=== PATIENT | female | born 1970 | race Caucasian/White ===

== ENCOUNTER 2024-07-14 16:11 | Observation (INO) ==
[2024-07-14 16:46] LABS: Basophils #(Absolute) Auto 0.2 (0.0-0.1); Basophils%(Percent) Auto 1.3 (0.1-0.85); Eosinophils#(Absolute)Auto 0.6 (0.0-0.2); Eosinophils%(Percent) Auto 4.5 % (0.4-2.8); Granulocytes % - Auto 50.8 % (47.8-71.3); Granulocytes#(Absolute)- Auto 6.5 (2.3-6.0); Hematocrit 41.8 % (35.9-46.7); Mean Corpuscular Volume 86.5 fl (81.0-93.7); Monocytes #(Absolute)- Auto 0.7 (1.1-3.1); Monocytes %(Percent)- Auto 5.3 % (3.6-9.8); Platelet Count 348 K/uL (152-353); White Blood Count 12.8 K/uL (4.3-9.3)
[2024-07-14] MEDS ORDERED: 0.9 % SODIUM CHLORIDE 1000 ML 1,000 ML IV ONE (16:49)
[2024-07-14] MEDS ORDERED: METHYLPREDNISOLONE SOD SUCC/PF 125 MG/2 ML VIAL ONE (16:49)
[2024-07-14] MEDS: 0.9 % SODIUM CHLORIDE 1000 ML 1,000 ML IV STA (16:52)
[2024-07-14] MEDS: METHYLPREDNISOLONE SOD SUCC/PF 125 MG/2 ML VIAL IVP ONE (16:52)
--- NOTE | 2024-07-14 16:55 | Emergency Department Note ---
HPI - Weakness General Chief complaint: Headache Stated complaint: near syncope Time Seen by Provider: 07/14/24 16:16 Source: patient Mode of arrival: ambulance Limitations: no limitations History of Present Illness HPI Narrative: 54-year-old female presents to ER via EMS with complaint of headache, weakness, and chest pain x 1 day. Patient reports that she has recently had a growth removed from her left chest wall, reports that she has not been feeling well since yesterday, that she has been weak and her chest feels tight. MD Complaint: Reports generalized weakness and lack of energy Onset (ago): day(s) (1) Duration: Reports constant Location: Reports generalized and other (Chest) Migration: Reports none Severity: moderate Quality: Reports aching and other (Tightness) Relieving factors: Reports rest Exacerbating factors: Reports movement and exertion Context: Reports history of similar Associated symptoms: Reports chest pain, fever/chills, myalgias and shortness of breath Related Data Home Medications Medication Instructions Recorded Confirmed albuterol sulfate 90 mcg/actuation 2 inh inhalation Q4H PRN shortness 07/14/24 07/14/24 aerosol inhaler (Ventolin HFA) of breath or wheezing aspirin 81 mg tablet,delayed 81 mg PO DAILY 07/14/24 07/14/24 release atorvastatin 40 mg tablet 40 mg PO DAILY 07/14/24 07/14/24 clonazepam 0.5 mg tablet 0.5 mg PO DAILY 07/14/24 07/14/24 duloxetine 60 mg capsule,delayed 120 mg PO DAILY 07/14/24 07/14/24 release fenofibrate nanocrystallized 145 145 mg PO DAILY 07/14/24 07/14/24 mg tablet gabapentin 800 mg tablet 800 mg PO BID 07/14/24 07/14/24 hydroxyzine HCl 50 mg tablet 50 mg PO DAILY 07/14/24 07/14/24 levetiracetam 750 mg tablet 750 mg PO Q12H 07/14/24 07/14/24 meclizine 25 mg tablet 25 mg PO TID PRN dizziness 07/14/24 07/14/24 metformin 500 mg tablet 500 mg PO BID 07/14/24 07/14/24 naloxone 4 mg/actuation nasal spray 4 mg intranasal Q3M PRN opioid 07/14/24 07/14/24 overdose nitroglycerin 0.4 mg sublingual 0.4 mg sublingual Q5M PRN chest 07/14/24 07/14/24 tablet pain pantoprazole 40 mg tablet,delayed 40 mg PO DAILY 07/14/24 07/14/24 release prazosin 2 mg capsule 2 mg PO DAILY 07/14/24 07/14/24 promethazine 25 mg tablet 25 mg PO Q12H 07/14/24 07/14/24 propranolol 80 mg capsule,24 80 mg PO DAILY 07/14/24 07/14/24 hr,extended release trazodone 100 mg tablet 100 mg PO DAILY 07/14/24 07/14/24 Previous Rx's Medication Instructions Recorded ibuprofen 800 mg tablet 800 mg PO Q8H PRN pain #20 tabs 06/06/24 Allergies Allergy/AdvReac Type Severity Reaction Status Date / Time metoclopramide (From Reglan) Allergy Unknown Verified 07/14/24 16:20 ondansetron (From Zofran) Allergy Unknown Verified 07/14/24 16:20 simvastatin (From Zocor) Allergy Unknown Verified 07/14/24 16:20 sumatriptan (From Imitrex) Allergy Unknown Verified 07/14/24 16:20 steroids Allergy Unknown Uncoded 07/14/24 16:20 Review of Systems Status of ROS 10 or more systems reviewed and unremark able except as noted in history and below Constitutional Reports: fever, chills, fatigue and malaise; Denies: night sweats, change in sleep pattern or other Eyes Denies: change in vision, blurry vision, blind spots, light sensitivity, eye discomfort, eye discharge, dry eyes, increased production of tears, floaters, seeing flashes, decreased night vision or other Ears, nose, mouth, and throat Reports: nasal discharge and nasal congestion; Denies: throat pain, neck pain, throat swelling, difficulty swallowing, hoarseness, mouth pain, swelling of lips/tongue, dry mouth, bad breath, ear pain, ear discharge, change in hearing, tinnitus, vertigo, nose bleeds, post nasal drip or other Cardiovascular Reports: chest pain, shortness of breath with exertion and shortness of breath when lying down; Denies: palpitations, edema, swelling of feet/ankles, lightheadedness, leg pain with exertion, bluish discoloration of hands/feet or other Respiratory Reports: shortness of breath, cough, wheezing and chest congestion; Denies: stridor, pain on inspiration, change in phlegm color, coughing up blood or other Gastrointestinal Reports: difficulty swallowing; Denies: abdominal pain, nausea, vomiting, coffee grounds in vomit, heartburn, diarrhea, constipation, bloating, belching, excessive passing of gas, feeling full early, change in bowel habits, painful bowel movements, rectal pain, rectal swelling, rectal itching, change in stool character, blood in stool, mucus in stool, white/light colored stool, fatty stool or other Genitourinary Denies: painful urination, urinary frequency, urinary urgency, urinary incontinence, blood in urine, difficulty voiding, decreased urine ouput, pelvic pain, painful menstruation, vaginal bleeding, vaginal discharge, irregular period, change in menstrual flow, absence of menstruation, genital lesion, genital itching, vaginal dryness, vaginal odor, pain during intercourse, difficulty conceiving, change in libido or other Musculoskeletal Denies: back pain, neck pain, extremity pain, extremity swelling, joint pain, limited range of motion, joint swelling, muscle cramps, muscle weakness, loss of height or other Integumentary/Breast Denies: rash, itching, redness, skin pain, skin tenderness, skin swelling, sores, new lesion, changing lesion, non-healing lesion, changes in skin color, jaundice, stretch kerr, acne, nail changes, change in hair, breast pain, breast swelling, nipple discharge, breast mass, breast skin changes, change in breast shape or other Neurological Denies: headache, numbness in extremities, weakness in extremities, lack of coordination, dizziness, vertigo, confusion, behavioral changes, slurred speech, difficulty communicating thoughts, seizure-like activity, involuntary movements or other Psychiatric Reports: anxiety; Denies: mood swings, panic attacks, change in sleep pattern, hopelessness, loss of interest, irritability, paranoia, memory loss, difficulty concentrating, visual hallucinations, auditory hallucinations, tactile hallucinations, suicidal ideation, homicidal ideation or other Endocrine Reports: fatigue; Denies: excessive urination, excessive thirst, cold intolerance, excessive sweating, flushing, heat intolerance, deepening of the voice, change in body appearance, change in libido or other Hematologic/Lymphatic Denies: easy bruising, easy bleeding, enlarged lymph nodes or other Allergic/Immunologic Reports: wheezing; Denies: hives, throat swelling, tongue swelling, facial swelling, itchy eyes, seasonal allergies, food intolerance or other [facility] Medical History History of TIAs Seizures Asthma COPD (chronic obstructive pulmonary disease) Migraines CVA (cerebral vascular accident) Diabetes mellitus Hypertension Surgical History History of lumbosacral spine surgery H/O: hysterectomy Hx of cholecystectomy Social History Smoking status: current every day smoker What tobacco products do you use: cigarettes Packs per day: 2 Within the past year, how often did you have a drink containing alcohol: never Score interpretation: A score less than 3 is consistent with normal alcohol consumption. Non-prescribed substance use: cannabis (any form) Feel stressed/tense/nervous/anxious/difficulty sleeping: not at all Life stressor details: n/a Exam Constitutional: normal general appearance, distress noted (moderate), abnormal body habitus (overweight), no limitations and alert Vital Signs - 24 hr 07/14/24 16:14 07/14/24 16:22 07/14/24 16:24 Temperature 99.6 F Pulse Rate 87 78 83 Respiratory Rate 20 Blood Pressure 102/71 99/60 108/63 Pulse Oximetry 98 Oxygen Delivery Ms thod Room Air 07/14/24 16:26 07/14/24 17:10 07/14/24 19:30 Temperature Pulse Rate 101 H 63 Respiratory Rate 20 Blood Pressure 107/71 108/82 Pulse Oximetry 100 100 Oxygen Delivery Ms thod Room Air 07/14/24 20:30 07/14/24 21:30 07/14/24 22:00 Temperature Pulse Rate 74 73 72 Respiratory Rate 20 20 20 Blood Pressure 101/63 108/82 105/61 Pulse Oximetry 98 98 97 Oxygen Delivery Me thod Room Air Room Air Room Air 07/14/24 22:30 Temperature Pulse Rate 65 Respiratory Rate 20 Blood Pressure 100/59 Pulse Oximetry [facility] HENMT: normocephalic, head/scalp atraumatic, hearing grossly normal bilaterally, external ears normal, external nose normal, oral mucous membranes normal, oropharynx normal and dentition normal Eyes: PERRL, EOMs intact bilaterally, conjunctivae normal, no scleral icterus, no papilledema, normal visual luna by confrontation, alignment normal, periorbital findings normal and no nystagmus Neck/C-Spine: visual inspection normal, trachea midline, cervical spine nontender, cervical full ROM noted and supple Lymph: no lymphadenopathy noted and no lymphedema noted Chest: inspection of chest normal Noted an incision to the left chest wall where patient reports high growth was removed. Respiratory: breath sounds equal bilaterally, normal respiratory effort, clear to auscultation bilaterally, wheezing noted (expiratory wheezes), no retractions and no use of accessory muscles Cardiovascular: normal heart rate noted, regular rhythm noted, no gallop, no JVD and peripheral pulses 2+ throughout Gastrointestinal: abdomen normal to inspection, abdomen soft to palpation, nontender to palpation, nondistended, normoactive bowel sounds, no hepatosplenomegaly, no masses, no pulsatile mass and no ascites Genitourinary: no CVA tenderness and bladder normal to palpation Back/Pelvis: spine normal to inspection, no thoracic spine tenderness, no lumbar spine tenderness, thoracic spine ROM normal, lumbar spine ROM normal and no paraspinal muscle tenderness noted Extremities: normal to inspection, normal to palpation, no tenderness, full ROM, no joint enlargement and no deformity Neurology: 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, no movement abnormality noted, no focal motor deficit noted, no sensory deficits noted, gait normal, speech normal, coordination normal, no pronator drift noted, no fasciculations noted and GCS normal Psychiatry: Mental Status Exam documented within this Exam's Psych section mental status grossly normal, oriented x3, thought process normal, cooperative, affect normal, psychomotor activity normal and memory normal Feel stressed/tense/nervous/anxious/difficulty sleeping: not at all Life stressor details: n/a Skin: skin color normal, no rash, no lesions, no ecchymosis noted, no wounds, no lacerations, skin turgor normal, no jaundice, no petechiae, no mottling, nails normal and no alopecia Course Course Hospital Course: 54-year-old female presented ER with complaint of generalized weakness, chest pain, shortness of breath, has been evaluated by physical exam, CBC, CMP, urinalysis, magnesium, serial troponins, EKG, and plain film chest x-ray results as noted in charting. Patient's troponin initial troponin has been found to be elevated with serial troponins revealing no noted increase. Patient's chest x- ray reveals possible right upper lobe infiltrate or patchy opacity, patient's CBC reveals a 13,000 white count, and patient reports that she is having excruciating headache. Patient is noted to have expiratory wheezing and has received 2 DuoNebs and a Pulmicort breathing treatment for it. Patient has also been found to be hypoalbuminemic and hyponatremic. Patient will be admitted to [facility] floor for chest pain rule out continuing troponins and repeat EKG in the morning. Patient will receive electrolyte replacement as well as albumin infusion. Final read on patient's chest x-ray will be made by radiology; however, she will receive antibiotic therapy as well. Patient has agreed with treatment plan at this time and will be moved to soon as bed is available nursing staff will carry her to the floor. Vital Signs Vital signs: Vital Signs Temperature 99.6 F 07/14/24 16:14 Pulse Rate 87 07/14/24 16:14 Respiratory Rate 20 07/14/24 16:14 Blood Pressure 102/71 07/14/24 16:14 Pulse Oximetry 98 07/14/24 16:14 Oxygen Delivery Method Room Air 07/14/24 16:14 Temperature 99.6 F 07/14/24 16:14 Pulse Rate 65 07/14/24 22:30 Respiratory Rate 20 07/14/24 22:30 Blood Pressure 100/59 07/14/24 22:30 Pulse Oximetry 96 07/14/24 22:30 Oxygen Delivery Method Room Air 07/14/24 22:30 MDM - Weakness MDM Narrative Medical decision making narrative: Medical Decision Making this patient involved physical exam, CBC, CMP, urinalysis, magnesium, EKG, plain film chest x-ray, and troponin. Differential Diagnosis Differential diagnosis: Likely hypoglycemia, hypothyroidism, rhabdomyolysis, deh ydration and other (Chest pain, influenza, COVID, shortness of breath, generalized weakness) Lab Data Attestation: I reviewed the patient's lab results. Labs: Lab Results 07/14/24 07/14/24 07/14/24 Range/Units 16:25 16:30 18:30 WBC 12.8 H (4.3-9.3) K/uL RBC 4.8 (4.00-5.50) M/uL Hgb 13.3 (12.5-15.8) gm/dL Hct 41.8 (35.9-46.7) % MCV 86.5 (81.0-93.7) fl MCH 27.5 L (27.6-32.2) pg MCHC 31.8 L (33.1-35.3) g/dl RDW 14.4 H (11.4-14.2) % Plt Count 348 (152-353) K/uL MPV 8.9 (6.9-10.8) fl Gran % 50.8 (47.8-71.3) % Lymph % (Auto) 38.1 (20.0-43.0) % [place] % (Auto) 5.3 (3.6-9.8) % Eos % (Auto) 4.5 H (0.4-2.8) % Baso % (Auto) 1.3 H (0.1-0.85) Lymph # (Auto) 4.9 H (1.1-3.1) [place] # (Auto) 0.7 L (1.1-3.1) Eos # (Auto) 0.6 H (0.0-0.2) Baso # (Auto) 0.2 H (0.0-0.1) Absolute Gran (auto) 6.5 H (2.3-6.0) Sodium 134 L (136-145) mmol/L Potassium 4.0 (3.6-5.2) mmol/L Chloride 103.0 (98-107) mmol/L Carbon Dioxide 22 (21-32) mmol/L Anion Gap 9.0 (4-14) mEq/L BUN 20 H (7-18) mg/dL Creatinine 1.2 (0.6-1.3) mg/dL Estimated GFR 54.5 (>59.9) Glucose 119 H (70-110) mg/dL Calcium 8.3 L (8.5-10.1) mg/dL Magnesium 1.2 L (1.8-2.4) mg/dL Total Bilirubin 0.13 (0.0-1.0) mg/dL AST 13 L (15-37) U/L ALT 11 L (30-65) U/L Alkaline Phosphatase 75 (50-136) U/L Troponin I High Sens 114.10 H* (4.0-60.4) ng/L Total Protein 7.3 (6.4-8.2) g/dL Albumin 3.1 L (3.4-5.0) g/dL Urine Color Yellow (STRAW/YELL.) Urine Appearance Clear (CLEAR) Ur Specific [place] 1.030 (1.001-1.035) Urine Protein Negative (NEGATIVE) Urine Glucose (UA) Normal (NORMAL) Urine Ketones Small (NEGATIVE) Urine Occult Blood Negative (NEG - TRACE) Urine Nitrite Negative (NEGATIVE) Urine Bilirubin Negative (NEGATIVE) Urine Urobilinogen Normal (NORMAL) Ur Leukocyte Esterase Negative (NEGATIVE) Fluid pH 6.0 (5 - 9) COVID-19 (CHEMO) Not detected (Not Detectd) Influenza Type A Ag Negative (Negative) Influenza Type B Ag Negative (Negative) 07/14/24 Range/Units 19:00 WBC (4.3-9.3) K/uL RBC (4.00-5.50) M/uL Hgb (12.5-15.8) gm/dL Hct (35.9-46.7) % MCV (81.0-93.7) fl MCH (27.6-32.2) pg MCHC (33.1-35.3) g/dl RDW (11.4-14.2) % Plt Count (152-353) K/uL MPV (6.9-10.8) fl Gran % (47.8-71.3) % Lymph % (Auto) (20.0-43.0) % [place] % (Auto) (3.6-9.8) % Eos % (Auto) (0.4-2.8) % Baso % (Auto) (0.1-0.85) Lymph # (Auto) (1.1-3.1) [place] # (Auto) (1.1-3.1) Eos # (Auto) (0.0-0.2) Baso # (Auto) (0.0-0.1) Absolute Gran (auto) (2.3-6.0) Sodium (136-145) mmol/L Potassium (3.6-5.2) mmol/L Chloride (98-107) mmol/L Carbon Dioxide (21-32) mmol/L Anion Gap (4-14) mEq/L BUN (7-18) mg/dL Creatinine (0.6-1.3) mg/dL Estimated GFR (>59.9) Glucose (70-110) mg/dL Calcium (8.5-10.1) mg/dL Magnesium (1.8-2.4) mg/dL Total Bilirubin (0.0-1.0) mg/dL AST (15-37) U/L ALT (30-65) U/L Alkaline Phosphatase (50-136) U/L Troponin I High Sens 114.40 H* (4.0-60.4) ng/L Total Protein (6.4-8.2) g/dL Albumin (3.4-5.0) g/dL Urine Color (STRAW/YELL.) Urine Appearance (CLEAR) Ur Specific [place] (1.001-1.035) Urine Protein (NEGATIVE) Urine Glucose (UA) (NORMAL) Urine Ketones (NEGATIVE) Urine Occult Blood (NEG - TRACE) Urine Nitrite (NEGATIVE) Urine Bilirubin (NEGATIVE) Urine Urobilinogen (NORMAL) Ur Leukocyte Esterase (NEGATIVE) Fluid pH (5 - 9) COVID-19 (CHEMO) (Not Detectd) Influenza Type A Ag (Negative) Influenza Type B Ag (Negative) Imaging Data Imaging ordered: Chest x-ray Attestation: I personally reviewed and interpreted this imaging study as follows: My impression: Possible infiltrate or effusion in the right upper lobe ECG Data Attestation: I have reviewed the pertinent ECG results. Interpretation: Sinus rhythm rate 71 Normal P axis RR rate 44 MI 157 P axis 9 QRS 36 T 26 Discharge Plan Discharge Patient Disposition: Admitted As Observation Condition: Stable Chief Complaint: Headache Clinical Impression: Chest pain, Hyponatremia, Hypoalbuminemia, Leukocytosis, Elevated troponin Prescriptions: No Action ibuprofen 800 mg tablet 800 mg PO Q8H PRN (Reason: pain) Qty: 20 0RF pantoprazole 40 mg tablet,delayed release (DR/EC) 40 mg PO DAILY Patient Comments: TAKE 1 TABLET BY MOUTH ONCE DAILY nitroglycerin 0.4 mg tablet, sublingual 0.4 mg sublingual Q5M PRN (Reason: chest pain) Patient Comments: DISSOLVE ONE TABLET UNDER THE TONGUE EVERY 5 MINUTES NEEDED FOR CHEST PAIN. DO NOT EXCEED A TOTAL OF 3 DOSES IN 15 MINUTES trazodone 100 mg tablet 100 mg PO DAILY Patient Comments: TAKE 1 TABLET BY MOUTH AT BEDTIME Rx Instructions: at bedtime atorvastatin 40 mg tablet 40 mg PO DAILY Patient Comments: TAKE 1 TABLET BY MOUTH ONCE DAILY AT BEDTIME Rx Instructions: at bedtime aspirin 81 mg tablet,delayed release (DR/EC) 81 mg PO DAILY Patient Comments: TAKE 1 TABLET BY MOUTH ONCE DAILY hydroxyzine HCl 50 mg tablet 50 mg PO DAILY Patient Comments: TAKE 1 TO 2 TABLETS BY MOUTH THREE TIMES DAILY NEEDED Rx Instructions: take 1 -2 tablets by mouth tid as needed meclizine 25 mg tablet 25 mg PO TID PRN (Reason: dizziness) Patient Comments: TAKE 1 TABLET BY MOUTH THREE TIMES DAILY NEEDED Rx Instructions: take tid prn clonazepam 0.5 mg tablet 0.5 mg PO DAILY Patient Comments: TAKE 1 TABLET BY MOUTH ONCE DAILY propranolol 80 mg capsule,extended release 24 hr 80 mg PO DAILY Patient Comments: TAKE 1 CAPSULE BY MOUTH ONCE DAILY metformin 500 mg tablet 500 mg PO BID Patient Comments: TAKE 2 TABLETS BY MOUTH TWICE DAILY WITH A MEAL prazosin 2 mg capsule 2 mg PO DAILY Patient Comments: TAKE 1 CAPSULE BY MOUTH AT BEDTIME Rx Instructions: at bedtime gabapentin 800 mg tablet 800 mg PO BID Patient Comments: TAKE 1 TABLET BY MOUTH 2 TO 3 TIMES DAILY Rx Instructions: take 1 tablet 2-3 times daily fenofibrate nanocrystallized 145 mg tablet 145 mg PO DAILY Patient Comments: TAKE 1 TABLET BY MOUTH ONCE DAILY duloxetine 60 mg capsule,delayed release(DR/EC) 120 mg PO DAILY Patient Comments: TAKE 2 CAPSULES BY MOUTH ONCE DAILY levetiracetam 750 mg tablet 750 mg PO Q12H Patient Comments: TAKE 1 TABLET BY MOUTH EVERY 12 HOURS promethazine 25 mg tablet 25 mg PO Q12H Patient Comments: TAKE 1 TABLET BY MOUTH EVERY 12 HOURS naloxone 4 mg/actuation spray,non-aerosol 4 mg INTRANASAL Q3M PRN (Reason: opioid overdose) Patient Comments: ADMINISTER A SINGLE SPRAY IN ONE NOSTRIL UPON SIGNS OF OPIOID OVERDOSE. CALL 911. REPEAT AFTER 3 MINUTES IF NO RESPONSE. albuterol sulfate [Ventolin HFA] 90 mcg/actuation HFA aerosol inhaler 2 inh inhalation Q4H PRN (Reason: shortness of breath or wheezing) Print Language: Welsh Referrals: Nina Deshpande [Primary Care Provider] - Time of Disposition: 21:00
[2024-07-14] MEDS: IPRATROPIUM/ALBUTEROL SULFATE 3 ML AMPUL.NEB INH ONE (17:11)
[2024-07-14] MEDS: BUDESONIDE 0.5 MG/2 ML AMPUL.NEB INH ONE (17:11)
[2024-07-14] MEDS: MAGNESIUM SULFATE 1 GM/2 ML 2 GM in 0.9 % SODIUM CHLORIDE 100ML 100 ML IV ONE (17:28)
[2024-07-14 18:40] LABS: Urine Appearance CLEAR (CLEAR); Urine Color YELLOW (STRAW/YELL.)
[2024-07-14 18:41] LABS: Urine Blood NEGATIVE (NEG - TRACE); Urine Urobilinogen Normal (NORMAL)
[2024-07-14] MEDS: diphenhydrAMINE HCL 50 MG/ML VIAL INJ ONE (20:51)
[2024-07-14] MEDS: MORPHINE SULFATE 4 MG/ML CARTRIDGE IVP ONE (20:52)
[2024-07-14] MEDS ORDERED: MAGNESIUM SULFATE 1 GM/2 ML VIAL ONE (20:57)
[2024-07-14] MEDS ORDERED: 0.9 % SODIUM CHLORIDE 100ML 100 ML IV ONE (20:59)
[2024-07-15] MEDS ORDERED: MORPHINE SULFATE 4 MG/ML CARTRIDGE IV PRN (00:05)
[2024-07-15] MEDS ORDERED: ACETAMINOPHEN 500 MG TABLET PO PRN (00:05)
[2024-07-15] MEDS ORDERED: DOCUSATE SODIUM 100 MG CAPSULE PO PRN (00:05)
[2024-07-15] MEDS ORDERED: 0.9 % SODIUM CHLORIDE 250 ML IV ONE (00:32)
[2024-07-15] MEDS ORDERED: AZITHROMYCIN 500 MG VIAL ONE (00:32)
[2024-07-15] MEDS: AZITHROMYCIN 500 MG 500 MG in 0.9 % SODIUM CHLORIDE 250 ML IV ONE (00:33)
[2024-07-15] MEDS: 0.9 % SODIUM CHLORIDE 1000 ML 1,000 ML IV SCH (01:09)
[2024-07-15] MEDS: MAGNESIUM SULFATE 1 GM/2 ML 1 GM in 0.9 % SODIUM CHLORIDE 100ML 100 ML IV ONE (01:09)
[2024-07-15] MEDS: PROMETHAZINE HCL 25 MG in 0.9 % SODIUM CHLORIDE 50 ML IV PRN (01:10)
[2024-07-15] MEDS: MAGNESIUM SULFATE 1 GM/2 ML VIAL ONE (01:10)
[2024-07-15] MEDS: IPRATROPIUM/ALBUTEROL SULFATE 3 ML AMPUL.NEB INH SCH ×2 (01:58→11:52)
[2024-07-15] MEDS: 0.9 % SODIUM CHLORIDE 100ML 100 ML IV ONE (02:01)
[2024-07-15 05:27] LABS: Basophils #(Absolute) Auto 0.1 (0.0-0.1); Basophils%(Percent) Auto 0.6 (0.1-0.85); Granulocytes % - Auto 84.1 % (47.8-71.3); Granulocytes#(Absolute)- Auto 10.4 (2.3-6.0); Hematocrit 36.1 % (35.9-46.7); Mean Corpuscular Volume 85.6 fl (81.0-93.7); Monocytes #(Absolute)- Auto 0.3 (1.1-3.1); Platelet Count 299 K/uL (152-353); White Blood Count 12.4 K/uL (4.3-9.3)
[2024-07-15 05:43] LABS: Potassium 4.3 mmol/L (3.6-5.2)
[2024-07-15] MEDS: BUDESONIDE 0.5 MG/2 ML AMPUL.NEB INH SCH (08:37)
[2024-07-15 08:47] VITALS: RESP 19
[2024-07-15] MEDS: PANTOPRAZOLE SODIUM 40 MG TABLET.DR PO SCH (09:23)
[2024-07-15] MEDS: ENOXAPARIN SODIUM 40 MG/0.4 ML SYRINGE SUBQ SCH (09:23)
[2024-07-15] MEDS: hydrOXYzine HCL 25 MG TABLET PO SCH (10:56)
[2024-07-15] MEDS: levETIRAcetam 250 MG TABLET PO SCH (10:57)
[2024-07-15] MEDS: CEFTRIAXONE SODIUM 1 GM in 0.9 % SODIUM CHLORIDE MB+ 50 ML IV SCH (10:57)
[2024-07-15] MEDS: ASPIRIN 81 MG TABLET.DR PO SCH (10:57)
[2024-07-15] MEDS: DULOXETINE HCL 30 MG CAPSULE.DR PO SCH (10:57)
[2024-07-15] MEDS: METFORMIN HCL 500 MG TABLET PO SCH (10:57)
[2024-07-15] MEDS: clonazePAM 0.5 MG TABLET PO SCH (10:57)
[2024-07-15] MEDS: METHYLPREDNISOLONE SOD SUCC/PF 40 MG/ML VIAL INJ SCH (11:00)
[2024-07-15] MEDS: PROPRANOLOL 80 MG PO SCH (11:16)
[2024-07-15] MEDS: TRAZODONE HCL 50 MG TABLET PO SCH (11:17)
[2024-07-15] MEDS: ATORVASTATIN CALCIUM 40 MG TABLET PO SCH (11:17)
[2024-07-15] MEDS: PRAZOSIN HCL 1 MG CAPSULE PO SCH (11:17)
[2024-07-15] MEDS: HYDROCODONE/ACETAMINOPHEN 5/325 MG TABLET PO PRN (11:56)
--- NOTE | 2024-07-15 12:48 | History & Physical Report ---
H&P: HPI History of Present Illness Chief complaint: chest pain, elevated troponin, leukocytosis, hypon Narrative: Ms. Stinson admitted on 07/15/24 from ED with increased CP over the last several days. She also complains of fatigue and dizziness mostly on ambulation. She states L side chest pain feels like a pressure. She did have procedure done 1 week ago for subcutaneous blood clot removal to the same area which is healing well. WBC elevated at 12, CMP baseline, Troponin elevated but decreasing. CXR preliminary showed PNA, but final read was negative however patient does have history of COPD with no home O2 currently requiring oxygen at 2L. Review of Systems Status of ROS 10 or more systems reviewed and unremark able except as noted in history and below Constitutional Reports: fatigue and malaise; Denies: change in weight, night sweats, change in sleep pattern or other Eyes Denies: change in vision, blurry vision, blind spots, light sensitivity, eye discomfort, eye discharge, dry eyes, increased production of tears, floaters, seeing flashes, decreased night vision or other Ears, nose, mouth, and throat Reports: nasal discharge and nasal congestion; Denies: throat pain, neck pain, throat swelling, difficulty swallowing, hoarseness, mouth pain, swelling of lips/tongue, dry mouth, bad breath, ear pain, ear discharge, change in hearing, tinnitus, vertigo, nose bleeds, post nasal drip or other Cardiovascular Reports: chest pain, shortness of breath with exertion and shortness of breath when lying down; Denies: palpitations, edema, swelling of feet/ankles, lightheadedness, leg pain with exertion, bluish discoloration of hands/feet or other Respiratory Reports: shortness of breath, cough, wheezing and chest congestion; Denies: stridor, pain on inspiration, change in phlegm color, coughing up blood or other Gastrointestinal Denies: abdominal pain, nausea, vomiting, coffee grounds in vomit, heartburn, diarrhea, constipation, bloating, belching, excessive passing of gas, difficulty swallowing, feeling full early, change in bowel habits, painful bowel movements, rectal pain, rectal swelling, rectal itching, change in stool character, blood in stool, mucus in stool, white/light colored stool, fatty stool or other Genitourinary Denies: painful urination, urinary frequency, urinary urgency, urinary incontinence, blood in urine, difficulty voiding, decreased urine ouput, pelvic pain, painful menstruation, vaginal bleeding, vaginal discharge, irregular period, change in menstrual flow, absence of menstruation, genital lesion, genital itching, vaginal dryness, vaginal odor, pain during intercourse, difficulty conceiving, change in libido or other Musculoskeletal Denies: back pain, neck pain, extremity pain, extremity swelling, joint pain, limited range of motion, joint swelling, muscle cramps, muscle weakness, loss of height or other Integumentary/Breast Denies: rash, itching, redness, skin pain, skin tenderness, skin swelling, sores, new lesion, changing lesion, non-healing lesion, changes in skin color, jaundice, stretch kerr, acne, nail changes, change in hair, breast pain, breast swelling, nipple discharge, breast mass, jami ast skin changes, change in breast shape or other Neurological Denies: headache, numbness in extremities, weakness in extremities, lack of coordination, dizziness, vertigo, confusion, behavioral changes, slurred speech, difficulty communicating thoughts, seizure-like activity, involuntary movements or other Psychiatric Reports: anxiety; Denies: mood swings, panic attacks, change in sleep pattern, hopelessness, loss of interest, irritability, paranoia, memory loss, difficulty concentrating, visual hallucinations, auditory hallucinations, tactile hallucinations, suicidal ideation, homicidal ideation or other Endocrine Reports: fatigue; Denies: excessive urination, excessive thirst, cold intolerance, excessive sweating, flushing, heat intolerance, deepening of the voice, change in body appearance, change in libido or other Hematologic/Lymphatic Denies: easy bruising, easy bleeding, enlarged lymph nodes or other Allergic/Immunologic Reports: wheezing; Denies: hives, throat swelling, tongue swelling, facial swelling, itchy eyes, seasonal allergies, food intolerance or other [facility] Medical History (Updated 07/15/24 @ 13:00 by Pablo Rosario NP) Pneumonia History of TIAs Seizures Asthma COPD (chronic obstructive pulmonary disease) Migraines CVA (cerebral vascular accident) Diabetes mellitus Hypertension Surgical History History of lumbosacral spine surgery H/O: hysterectomy Hx of cholecystectomy Social History Smoking status: current every day smoker What tobacco products do you use: cigarettes Packs per day: 2 Within the past year, how often did you have a drink containing alcohol: never Score interpretation: A score less than 3 is consistent with normal alcohol consumption. Non-prescribed substance use: cannabis (any form) Problems where you live: no known problems Highest level of school completed/degree received: high school Feel stressed/tense/nervous/anxious/difficulty sleeping: not at all Life stressor details: n/a Meds Home Medications and Allergies Home Medications Medication Instructions Recorded Confirmed Type ibuprofen 800 mg tablet 800 mg PO Q8H PRN pain #20 tabs 06/06/24 07/14/24 Rx albuterol sulfate 90 mcg/actuation 2 inh inhalation Q4H PRN shortness 07/14/24 07/14/24 History aerosol inhaler (Ventolin HFA) of breath or wheezing aspirin 81 mg tablet,delayed 81 mg PO DAILY 07/14/24 07/14/24 History release atorvastatin 40 mg tablet 40 mg PO DAILY 07/14/24 07/14/24 History clonazepam 0.5 mg tablet 0.5 mg PO DAILY 07/14/24 07/14/24 History duloxetine 60 mg capsule,delayed 120 mg PO DAILY 07/14/24 07/14/24 History release fenofibrate nanocrystallized 145 145 mg PO DAILY 07/14/24 07/14/24 History mg tablet gabapentin 800 mg tablet 800 mg PO BID 07/14/24 07/14/24 History hydroxyzine HCl 50 mg tablet 50 mg PO DAILY 07/14/24 07/14/24 History levetiracetam 750 mg tablet 750 mg PO Q12H 07/14/24 07/14/24 History meclizine 25 mg tablet 25 mg PO TID PRN dizziness 07/14/24 07/14/24 History metformin 500 mg tablet 500 mg PO BID 07/14/24 07/14/24 History naloxone 4 mg/actuation nasal spray 4 mg intranasal Q3M PRN opioid 07/14/24 07/14/24 History overdose nitroglycerin 0.4 mg sublingual 0.4 mg sublingual Q5M PRN chest 07/14/24 07/14/24 History tablet pain pantoprazole 40 mg tablet,delayed 40 mg PO DAILY 07/14/24 07/14/24 History release prazosin 2 mg capsule 2 mg PO DAILY 07/14/24 07/14/24 History promethazine 25 mg tablet 25 mg PO Q12H 07/14/24 07/14/24 History propranolol 80 mg capsule,24 80 mg PO DAILY 07/14/24 07/14/24 History hr,extended release trazodone 100 mg tablet 100 mg PO DAILY 07/14/24 07/14/24 History Allergies Allergy/AdvReac Type Severity Reaction Status Date / Time metoclopramide (From Reglan) Allergy Unknown Verified 07/14/24 16:20 ondansetron (From Zofran) Allergy Unknown Verified 07/14/24 16:20 simvastatin (From Zocor) Allergy Unknown Verified 07/14/24 16:20 sumatriptan (From Imitrex) Allergy Unknown Verified 07/14/24 16:20 steroids Allergy Unknown Uncoded 07/14/24 16:20 Exam Constitutional: normal general appearance, distress noted (moderate), abnormal body habitus (overweight), no limitations and alert Vital Signs - 24 hr 07/14/24 16:14 07/14/24 16:22 07/14/24 16:24 Temperature 99.6 F Pulse Rate 87 78 83 Pulse Rate [Left B rachial] Respiratory Rate 20 Blood Pressure 102/71 99/60 108/63 Blood Pressure [Le ft Arm] Pulse Oximetry 98 Oxygen Delivery Me thod Room Air Oxygen Flow Rate Fraction of Inspir ed Oxygen 07/14/24 16:26 07/14/24 17:10 07/14/24 19:30 Temperature Pulse Rate 101 H 63 Pulse Rate [Left B rachial] Respiratory Rate 20 Blood Pressure 107/71 108/82 Blood Pressure [Le ft Arm] Pulse Oximetry 100 100 Oxygen Delivery Me thod Room Air Oxygen Flow Rate Fraction of Inspir ed Oxygen 07/14/24 20:30 07/14/24 21:30 07/14/24 22:00 Temperature Pulse Rate 74 73 72 Pulse Rate [Left B rachial] Respiratory Rate 20 20 20 Blood Pressure 101/63 108/82 105/61 Blood Pressure [Le ft Arm] Pulse Oximetry 98 98 97 Oxygen Delivery Me thod Room Air Room Air Room Air Oxygen Flow Rate Fraction of Inspir ed Oxygen 07/14/24 22:30 07/14/24 23:30 07/15/24 00:30 Temperature Pulse Rate 65 71 74 Pulse Rate [Left B rachial] Respiratory Rate 20 20 20 Blood Pressure 100/59 105/58 108/64 Blood Pressure [Le ft Arm] Pulse Oximetry 96 97 98 Oxygen Delivery Me thod Room Air Room Air Room Air Oxygen Flow Rate Fraction of Inspir ed Oxygen 07/15/24 00:30 07/15/24 00:36 07/15/24 00:36 Temperature 99.6 F 98.5 F Pulse Rate 74 Pulse Rate [Left B rachial] 67 Respiratory Rate 20 17 Blood Pressure 108/64 Blood Pressure [Le ft Arm] 111/65 Pulse Oximetry 98 97 Oxygen Delivery Me thod Room Air Room Air Oxygen Flow Rate Fraction of Inspir ed Oxygen 07/15/24 01:58 07/15/24 01:58 07/15/24 04:25 Temperature Pulse Rate Pulse Rate [Left B rachial] Respiratory Rate Blood Pressure Blood Pressure [Le ft Arm] Pulse Oximetry 95 95 92 L Oxygen Delivery Me thod Room Air Nasal Cannula Oxygen Flow Rate 2 Fraction of Inspir ed Oxygen 21 28 07/15/24 04:32 07/15/24 08:00 07/15/24 08:37 Temperature 97.9 F 97.6 F Pulse Rate Pulse Rate [Left B rachial] 60 59 L Respiratory Rate 16 19 Blood Pressure Blood Pressure [Le ft Arm] 98/58 107/62 Pulse Oximetry 91 L 97 100 Oxygen Delivery Me thod Room Air Nasal Cannula Oxygen Flow Rate 2 Fraction of Inspir ed Oxygen 07/15/24 11:52 Temperature Pulse Rate Pulse Rate [Left B rachial] Respiratory Rate Blood Pressure Blood Pressure [Le ft Arm] Pulse Oximetry 99 Oxygen Delivery Me thod Oxygen Flow Rate Fraction of Inspir ed Oxygen HENMT: normocephalic, head/scalp atraumatic, hearing grossly normal bilaterally, external ears normal, external nose normal, oral mucous membranes normal, oropharynx normal and dentition normal Eyes: PERRL, EOMs intact bilaterally, conjunctivae normal, no scleral icterus, no papilledema, normal visual luna by confrontation, alignment normal, periorbital findings normal and no nystagmus Neck/C-Spine: visual inspection normal, trachea midline, cervical spine nontender, cervical full ROM noted and supple Lymph: no lymphadenopathy noted and no lymphedema noted Chest: inspection of chest normal Noted an incision to the left chest wall where patient reports high growth was removed. Respiratory: breath sounds equal bilaterally, normal respiratory effort, clear to auscultation bilaterally, wheezing noted (scattered wheezes), no retractions and no use of accessory muscles Cardiovascular: normal heart rate noted, regular rhythm noted, no gallop, no JVD and peripheral pulses 2+ throughout Gastrointestinal: abdomen normal to inspection, abdomen soft to palpation, no ntender to palpation, nondistended, normoactive bowel sounds, no hepatosplenomegaly, no masses, no pulsatile mass and no ascites Genitourinary: no CVA tenderness and bladder normal to palpation Back/Pelvis: spine normal to inspection, no thoracic spine tenderness, no lumbar spine tenderness, thoracic spine ROM normal, lumbar spine ROM normal and no paraspinal muscle tenderness noted Extremities: normal to inspection, normal to palpation, no tenderness, full ROM, no joint enlargement and no deformity Neurology: grey roll man II-XII intact, no movement abnormality noted, no focal motor deficit noted, no sensory deficits noted, gait normal, speech normal, coordination normal, no pronator drift noted, no fasciculations noted and GCS normal Psychiatry: Mental Status Exam documented within this Exam's Psych section mental status grossly normal, oriented x3, thought process normal, cooperative, affect normal, psychomotor activity normal and memory normal Feel stressed/tense/nervous/anxious/difficulty sleeping: not at all Life stressor details: n/a Skin: skin color normal, no rash, no lesions, no ecchymosis noted, no wounds, no lacerations, skin turgor normal, no jaundice, no petechiae, no mottling, nails normal and no alopecia Assessment and Plan Assessment and Plan (1) Pneumonia: Code(s): J18.9 - Pneumonia, unspecified organism (2) COPD (chronic obstructive pulmonary disease): Code(s): J44.9 - Chronic obstructive pulmonary disease, unspecified Plan Admit VS q4hrs Duoneb QID Pulmicort BID Zpak Rocephin 1gm IV daily CBC BMP in AM Results Labs Labs: CBC 07/14/24 07/15/24 Range/Units 16:30 05:20 WBC 12.8 H 12.4 H (4.3-9.3) K/uL RBC 4.8 4.2 (4.00-5.50) M/uL Hgb 13.3 11.7 L (12.5-15.8) gm/dL Hct 41.8 36.1 (35.9-46.7) % Plt Count 348 299 (152-353) K/uL Gran % 50.8 84.1 H (47.8-71.3) % Lymph % (Auto) 38.1 13.3 L (20.0-43.0) % [place] % (Auto) 5.3 2.0 L (3.6-9.8) % Eos % (Auto) 4.5 H 0.0 L (0.4-2.8) % Baso % (Auto) 1.3 H 0.6 (0.1-0.85) Lymph # (Auto) 4.9 H 1.6 (1.1-3.1) [place] # (Auto) 0.7 L 0.3 L (1.1-3.1) Eos # (Auto) 0.6 H 0.0 (0.0-0.2) Baso # (Auto) 0.2 H 0.1 (0.0-0.1) Absolute Gran (auto) 6.5 H 10.4 H (2.3-6.0) CMP 07/14/24 07/15/24 16:30 05:20 Sodium 134 L 137 Potassium 4.0 4.3 Chloride 103.0 104.0 Carbon Dioxide 22 24 BUN 20 H 16 Creatinine 1.2 0.9 Glucose 119 H 180 H Calcium 8.3 L 8.6 Liver Function 07/14/24 07/15/24 Range/Units 16:30 05:20 Total Bilirubin 0.13 0.17 (0.0-1.0) mg/dL AST 13 L 9 L (15-37) U/L ALT 11 L 12 L (30-65) U/L Alkaline Phosphatase 75 64 (50-136) U/L Albumin 3.1 L 2.9 L (3.4-5.0) g/dL Urine 07/14/24 18:30 Urine Color Yellow Urine Appearance Clear Ur Specific [place] 1.030 Urine Protein Negative Urine Glucose (UA) Normal Imaging Imaging ordered: Chest x-ray Radiologist's impression: [facility] [address] [place] [address] XRay Report Signed Patient: Daniela Stinson MR#: [id number] : 1970 Acct:[id number] Age/Sex: 54 / F ADM Date: 07/15/24 Loc: [place] 1113-[address]: Pablo Rosario NP Ordering Physician: Tico Tompkins NP Date of Service: 07/14/24 Procedure(s): XR chest 1V Accession Number(s): [id number] cc: Pablo Rosario NP; Tico Tompkins NP~ EXAM: CHEST HISTORY: WHEEZINGWHEEZING; COMPARISON: None. TECHNIQUE: Frontal view of the chest was submitted for interpretation. FINDINGS: The cardiomediastinal silhouette is within normal limits. Lungs show no focal consolidation, pneumothorax, or pleural fluid. IMPRESSION: No acute cardiopulmonary process. THIS IS AN ELECTRONICALLY VERIFIED FINAL REPORT 07/15/2024 6:48 AM - Electronically signed by Octavio Ewing MD Dictated By: Octavio Ewing M.D. Signed By: 07/15/24 0648 DD/ 1639 TD/TT: 07/14/24 1659 Director Fundraising:
[2024-07-15 17:42] VITALS: BP 116/69; PULSE 87; TEMP 97.9
[2024-07-15] MEDS ORDERED: BUDESONIDE 0.5 MG/2 ML AMPUL.NEB INH SCH (20:00)
[2024-07-15] MEDS ORDERED: ATORVASTATIN CALCIUM 40 MG TABLET PO SCH (21:00)
[2024-07-15] MEDS ORDERED: GABAPENTIN 400 MG CAPSULE PO SCH (21:00)
[2024-07-15] MEDS ORDERED: AZITHROMYCIN 500 MG 500 MG in 0.9 % SODIUM CHLORIDE 250 ML IV SCH (21:00)
[2024-07-16] MEDS ORDERED: AZITHROMYCIN 250 MG TABLET PO SCH (09:00)
[2024-07-16] MEDS ORDERED: FENOFIBRATE 54 MG TABLET PO SCH (09:00)
== END 2024-07-15 18:57 | disposition left against medical advice (07) ==
LOC: ED 16:11 → MS 16:11
PROVIDERS: ADMIT Nurse Practitioner Family; ATTEND Nurse Practitioner
DX: I10 Essential (primary) hypertension; Z86.73 Personal history of transient ischemic attack (TIA), and cerebral infarction without residual deficits; J44.89 Other specified chronic obstructive pulmonary disease; Z88.1 Allergy status to other antibiotic agents; Z79.899 Other long term (current) drug therapy; J18.9 Pneumonia, unspecified organism; E11.9 Type 2 diabetes mellitus without complications; Z53.29 Procedure and treatment not carried out because of patient's decision for other reasons; F17.210 Nicotine dependence, cigarettes, uncomplicated; Z79.82 Long term (current) use of aspirin; Z88.8 Allergy status to other drugs, medicaments and biological substances